=== PATIENT | female | born 1995 | race Caucasian/White ===

== ENCOUNTER 2021-06-19 16:59 | Emergency (ER) | payer MEDICAID ==
[~2021-06-19] VITALS: Ht 154.9 cm; Wt 164.2 kg
[2021-06-19] MEDS ORDERED: ACETAMINOP500 MG/15 PO (17:31)
== END 2021-06-19 20:45 | disposition home or self-care (01) ==
LOC: ED 16:59
DX: M79.652 Pain in left thigh (principal); M79.662 Pain in left lower leg; E66.01 Morbid (severe) obesity due to excess calories; Z90.49 Acquired absence of other specified parts of digestive tract; Z88.1 Allergy status to other antibiotic agents; Z88.8 Allergy status to other drugs, medicaments and biological substances
CPT/HCPCS: 93971; 99283-25

== ENCOUNTER 2021-12-24 16:11 | Emergency (ER) | payer MEDICAID ==
[~2021-12-24] VITALS: Ht 154.9 cm; Wt 164.2 kg
[~2021-12-24 16:11] MED LIST: ACETAMINOP500 MG/15 PO
[2021-12-24] MEDS ORDERED: LISINOPRIL10 MG PO (16:24)
--- NOTE | 2021-12-25 17:27 | EKG ---
[facility] [address] [facility] [place] [address] Signed Normal sinus rhythm Low voltage QRS Borderline ECG No previous ECGs available Confirmed by KRAIG ANDREW MD ([id number]) on 12/25/2021 5:27:32 PM Electronically Signed By: KRAIG ANDREW MD 12/25/21 1727 PATIENT NAME: GUDELIA ABAD Electrocardiogram DATE OF : [birth year] PHYSICIAN: KRAIG ANDREW MD REPORT #: [id number] REPORT IS CONFIDENTIAL AND NOT TO BE RELEASED WITHOUT AUTHORIZATION
== END 2021-12-24 21:10 | disposition home or self-care (01) ==
LOC: ED 16:11
DX: R07.89 Other chest pain (principal); I10 Essential (primary) hypertension; G40.909 Epilepsy, unspecified, not intractable, without status epilepticus; R73.03 Prediabetes; Z88.1 Allergy status to other antibiotic agents; Z88.8 Allergy status to other drugs, medicaments and biological substances; Z79.899 Other long term (current) drug therapy
CPT/HCPCS: 36415; 71045; 71260; 80048; 84484; 84703; 85025; 85379; 93005; 93010; 99285-25; Q9967

== ENCOUNTER 2023-06-13 07:41 | Observation (INO) | payer OTHER ==
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
[~2023-06-13 07:41] MED LIST changes: +ABILIFY MAINTE400 M1 IM; +DICYCLOMINE HCL20 MG PO; +LISINOPRIL10 MG PO; +PROMETHAZINE12.5 M1 PO; +TYLENOL EXTRA500 MG PO
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
== END 2023-06-14 10:00 | disposition home or self-care (01) ==
LOC: FBCO 07:41 → FBC 11:49
PROVIDERS: ADMIT Obstetrics & Gynecology; ATTEND Obstetrics & Gynecology
DX: Z04.1 Encounter for examination and observation following transport accident (principal); O36.8130 Decreased fetal movements, third trimester, not applicable or unspecified; Z3A.31 31 weeks gestation of pregnancy
CPT/HCPCS: 59025; G0378

== ENCOUNTER 2023-07-28 06:35 | Inpatient (IN) | payer OTHER | END 2023-07-30 14:06 | disposition home or self-care (01) | DRG 784 | LOC: FBC 06:35 | PROVIDERS: ADMIT Obstetrics & Gynecology | PROC: 10D00Z1 Extraction of Products of Conception, Low, Open Approach (ICD-10-PCS; principal; 2023-07-28) | PROC: 0UT70ZZ Resection of Bilateral Fallopian Tubes, Open Approach (ICD-10-PCS; 2023-07-28) | DX: O24.429 Gestational diabetes mellitus in childbirth, unspecified control (principal); D62 Acute posthemorrhagic anemia; O72.1 Other immediate postpartum hemorrhage; O90.81 Anemia of the puerperium; O34.211 Maternal care for low transverse scar from previous cesarean delivery; O99.824 Streptococcus B carrier state complicating childbirth; Z3A.37 37 weeks gestation of pregnancy; Z37.0 Single live birth; O77.0 Labor and delivery complicated by meconium in amniotic fluid; O99.214 Obesity complicating childbirth; E66.01 Morbid (severe) obesity due to excess calories; Z79.899 Other long term (current) drug therapy; Z90.49 Acquired absence of other specified parts of digestive tract; Z98.890 Other specified postprocedural states; Z88.1 Allergy status to other antibiotic agents ==

== ENCOUNTER 2023-09-06 22:14 | Emergency (ER) | payer OTHER ==
[~2023-09-06] VITALS: Ht 152.4 cm; Wt 174.0 kg
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
[2023-09-06] MEDS ORDERED: ABILIFY5 MG PO (22:29)
[2023-09-06 23:35] VITALS: BP 147/82
== END 2023-09-06 23:35 | disposition home or self-care (01) ==
LOC: ED 22:14
DX: O90.0 Disruption of cesarean delivery wound (principal); I10 Essential (primary) hypertension; G80.9 Cerebral palsy, unspecified; F41.9 Anxiety disorder, unspecified; F31.9 Bipolar disorder, unspecified; Z88.1 Allergy status to other antibiotic agents; Z79.899 Other long term (current) drug therapy; Z87.891 Personal history of nicotine dependence
CPT/HCPCS: 99282

== ENCOUNTER 2023-11-04 13:05 | Emergency (ER) | payer OTHER ==
[~2023-11-04] VITALS: Ht 152.4 cm; Wt 170.5 kg
[~2023-11-04 13:05] MED LIST changes: +ABILIFY5 MG PO
[2023-11-04] MEDS ORDERED: SUDOGEST30 MG PO (14:02)
[2023-11-04] MEDS ORDERED: BUSPIRONE HCL10 MG PO (14:02)
[2023-11-04] MEDS ORDERED: BUPROPION HCL100 MG PO (14:03)
[2023-11-04 14:38] VITALS: BP 150/101
== END 2023-11-04 14:38 | disposition home or self-care (01) ==
LOC: ED 13:05
DX: B34.9 Viral infection, unspecified (principal); G80.9 Cerebral palsy, unspecified; G40.909 Epilepsy, unspecified, not intractable, without status epilepticus; F41.9 Anxiety disorder, unspecified; F31.9 Bipolar disorder, unspecified; I10 Essential (primary) hypertension; Z87.891 Personal history of nicotine dependence; Z88.1 Allergy status to other antibiotic agents; Z79.899 Other long term (current) drug therapy
CPT/HCPCS: 99283

== ENCOUNTER 2023-11-07 09:06 | Emergency (ER) | payer OTHER ==
[~2023-11-07] VITALS: Ht 152.4 cm; Wt 172.6 kg
[~2023-11-07 09:06] MED LIST changes: +BUPROPION HCL100 MG PO; +BUSPIRONE HCL10 MG PO; +SUDOGEST30 MG PO
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
[2023-11-07] MEDS ORDERED: LIDOCAINE & ANTACID 35 ML BTL PO ONE (10:00)
[2023-11-07] MEDS ORDERED: IBUPROFEN 600 MG TAB PO ONE (10:00)
[2023-11-07] MEDS ORDERED: ACETAMINOPHEN 500 MG TAB PO ONE (10:00)
[2023-11-07] MEDS ORDERED: dexAMETHasone 4 MG TAB PO ONE (10:00)
[2023-11-07 11:16] VITALS: BP 142/89
== END 2023-11-07 11:16 | disposition home or self-care (01) ==
LOC: ED 09:06
DX: J02.9 Acute pharyngitis, unspecified (principal); G80.9 Cerebral palsy, unspecified; G40.909 Epilepsy, unspecified, not intractable, without status epilepticus; F41.9 Anxiety disorder, unspecified; F31.9 Bipolar disorder, unspecified; I10 Essential (primary) hypertension; Z87.891 Personal history of nicotine dependence; Z79.899 Other long term (current) drug therapy
CPT/HCPCS: 99283; A9270; J8540

== ENCOUNTER 2024-05-10 05:45 | Day surgery (SDC) | payer OTHER ==
[2024-05-04 14:34] VITALS: BP 126/80
[~2024-05-10] VITALS: Ht 154.9 cm; Wt 178.2 kg
[~2024-05-10 05:45] MED LIST changes: +LACTATED RINGER'S 1,000 ML IV SCH; +METHYLPREDNISOLO4 M1 PO; +PREDNISONE20 MG PO; +TRULICITY0.75 MG/0. SQ; +VENTOLIN HFA18 GM INH
[2024-05-10 06:02] VITALS: BP 119/64
[2024-05-10] MEDS ORDERED: IBLOOD GLUCOSE TEST STRIP 1 EA TEST VI PRN ×2 (07:00→08:00)
[2024-05-10] MEDS ORDERED: HEParin SOD (PORCINE) 5,000 UNIT/0.5 ML SYR SUB-Q SCH (07:00)
[2024-05-10] MEDS ORDERED: LIDOCAINE HCL 1% 5 ML SDV INJ ONE (07:00)
[2024-05-10] MEDS ORDERED: ACETAMINOPHEN 1,000 MG/100 ML VIAL ONE (07:21)
[2024-05-10] MEDS ORDERED: LIDOCAINE HCL 2% 5 ML SDV ONE (07:21)
[2024-05-10] MEDS ORDERED: ondansetron HCL 4 MG/2 ML VIAL ONE (07:21)
[2024-05-10] MEDS ORDERED: DEXAMETHASONE SOD PHOS 4 MG/ML VIAL ONE (07:21)
[2024-05-10] MEDS ORDERED: fentaNYL citrate 100 MCG/2 ML VIAL ONE (07:21)
[2024-05-10] MEDS ORDERED: propofoL 200 MG/20 ML VIAL ONE (07:21)
[2024-05-10] MEDS ORDERED: KETOROLAC TROMETHAMINE 30 MG/ML VIAL ONE (07:35)
[2024-05-10] MEDS ORDERED: ondansetron HCL 4 MG/2 ML VIAL IV PRN ×2 (08:00→08:30)
[2024-05-10] MEDS ORDERED: fentaNYL citrate 50 MCG/ML SDV IV PRN (08:00)
[2024-05-10] MEDS ORDERED: NALOXONE HCL 0.4 MG SYR IV PRN ×2 (08:00→08:30)
[2024-05-10 08:25] VITALS: BP 110/54
--- NOTE | 2024-05-10 08:27 | NUR ---
05/10/24 0827 Piedad Muhammad 0805 PT ARRIVED IN PACU WIDE AWAKE WITH NO C/O'S. 0815 GLASSES RETURNED TO PT AND SIPPING ON WATER. 0820 TO DS. REPORT GIVEN TO RN. MOM AT BEDSIDE.
[2024-05-10] MEDS ORDERED: METOCLOPRAMIDE HCL 10 MG/2 ML SDV IV PRN (08:30)
[2024-05-10] MEDS ORDERED: FAMOTIDINE 20 MG TAB PO PRN (08:30)
[2024-05-10] MEDS ORDERED: SIMETHICONE 125 MG TABLET CHEWABLE PO PRN (08:30)
[2024-05-10] MEDS ORDERED: MORPHINE SULFATE 10 MG/ML VIAL IV PRN (08:30)
[2024-05-10] MEDS ORDERED: OXYCODONE/APAP 5/325 TAB PO PRN (08:30)
--- NOTE | 2024-05-10 08:39 | NUR ---
0830: PATIENT BACK IN DAY SURGERY ROOM FROM PACU. RATES PAIN 5/10 IN LOWER ABDOMEN. DENIES NEED FOR PAIN MEDICATION AT THIS TIME. SMALL AMOUNT OF BLOODY DRAINAGE FROM VAGINA. VS CHECKED. IV SITE WNL. MOM AT BEDSIDE. CALL LIGHT WITHIN REACH.
--- NOTE | 2024-05-10 09:01 | NUR ---
PATIENT MEDICATED FOR 7/10 ABDOMINAL PAIN WITH 1 TAB OF PERCOCET. PATIENT TOOK TABLET CRUSHED IN APPLESAUCE. TOLERATING WATER AND JELLO. MOTHER AT BEDSIDE. CALL LIGHT WITHIN REACH.
[2024-05-10 09:20] VITALS: BP 119/54
--- NOTE | 2024-05-10 09:46 | OR ---
[facility] [address] [place], [place] [address] Signed DATE OF OPERATION: 05/10/2024 SURGEON: Josiah Yuen DO PREOPERATIVE DIAGNOSES: 1. Abnormal uterine bleeding. 2. Morbid obesity with BMI greater than 75. POSTOPERATIVE DIAGNOSES: 1. Abnormal uterine bleeding. 2. Morbid obesity with BMI greater than 75. PROCEDURES PERFORMED: Hysteroscopy, dilation and curettage. CHILD CARE CENTRE DIRECTOR: General. ESTIMATED BLOOD LOSS: 5 mL. FLUID DEFICIT: 110 mL. SPECIMEN: Endometrial curettings. FINDINGS: Normal external genitalia with normal clitoris, urethral meatus, bilateral Fritch's, and Bartholin's glands. Normal vagina and cervix. On hysteroscopy, normal cervical os and canal. Normal endometrium with no polyps or fibroids and normal bilateral tubal ostia. COMPLICATIONS: None. INDICATIONS: Ms. Abad is a very pleasant 29-year-old female, who has developed increasingly abnormal and heavy bleeding since tubal ligation with delivery of her last baby. Medical history is complicated by morbid obesity with a BMI greater than 75. An ultrasound was attempted to be performed to evaluate for abnormal bleeding, but was suboptimal given Electronically Signed By: JOSIAH YUEN DO (JD) 05/10/24 0946 PATIENT NAME: GUDELIA ABAD OPERATIVE REPORT DATE OF : [birth year] REPORT #: [id number] PHYSICIAN: JOSIAH YUEN DO (JD) PCP: BAHMAN LONGORIA MD REPORT IS CONFIDENTIAL AND NOT TO BE RELEASED WITHOUT AUTHORIZATION [facility] [address] [place], [place] [address] Signed body habitus. Recommended hysteroscopy, D and C for further evaluation. Risks, benefits, and alternatives were discussed in detail with the patient. The patient understands and wished to proceed with the procedure and we will perform this in the OR given the patient's comorbidities. DESCRIPTION OF PROCEDURE: The patient was taken the OR where a time-out was performed to confirm correct patient and correct procedure. General anesthesia was adequately established. The patient was prepped and draped in the dorsal lithotomy position with her feet in Yellofin stirrups. Bilateral foot pumps were applied due to calf size exceeding ICPs capacity and were on and running and no preoperative antibiotics were indicated. Heparin 5000 units was administered. The bladder was drained. A weighted speculum was placed in the vagina and the anterior lip of the cervix was grasped with an Allis clamp. The cervix was gently dilated using Hegar dilators to a #7. An operative hysteroscope was then placed in the cervical os and advanced under direct visualization of the uterine cavity. Normal cervix and uterine cavity appreciated with no structural lesions such as polyps or fibroids. The endometrium appears not overly thickened. Normal tubal ostia bilaterally were appreciated. A MyoSure Lite device was then selected, placed through the operative port of the hysteroscope and circumferential curettage was performed obtaining packaging sales representative sampling of the endometrium. This was sent to pathology for further evaluation. The hysteroscope was removed and fluid deficit was noted to be 110 mL. Bleeding was scant. Allis clamp was removed and the patient was taken to PACU in good and stable condition. Sponge, needle, and instrument count was correct x2 at the end of the procedure. Josiah Yuen DO JDW/MODL /[id number] Copies: ~ Electronically Signed By: JOSIAH YUEN DO (JD) 05/10/24 0946 PATIENT NAME: GUDELIA ABAD OPERATIVE REPORT DATE OF : [birth year] REPORT #: [id number] PHYSICIAN: JOSIAH YUEN DO (JD) PCP: BAHMAN LONGORIA MD REPORT IS CONFIDENTIAL AND NOT TO BE RELEASED WITHOUT AUTHORIZATION
--- NOTE | 2024-05-10 10:32 | NUR ---
0920: VS CHECKED. PATIENT STATES PAIN STARTING TO IMPROVE. DISCHARGE INSTRUCTIONS GIVEN TO PATIENT AND MOTHER. 0930: IV DC'D WNL. TIP INTACT. DRESSING APPLIED. PATIENT ASSISTED OOB AND TO BATHROOM. SMALL AMOUNT OF BLEEDING FROM VAGINA. PATIENT ABLE TO VOID APPROXIMATELY 250 ML. PATIENT DRESSED INDEPENDENTLY IN BATHROOM. 0940: PATIENT DISCHARGED TO HOME VIA WHEELCHAIR WITH MOTHER.
--- NOTE | 2024-05-17 18:01 | PATH ---
[facility] [address] [place], [place] [address] Signed SPECIMEN(S): A ENDOMETRIAL CURETTINGS SPECIMEN SOURCE: A. ENDOMETRIAL CURETTINGS CLINICAL HISTORY: AUB; dysmenorrhea. FINAL PATHOLOGIC DIAGNOSIS: Endometrium, curettings: - Secretory phase endometrium, postovulatory day 6 (menstrual cycle day 20). COMMENT: The specimen consists of secretory phase endometrium that has morphologic features consistent with postovulatory day 6 (menstrual cycle day 20). There is moderate stromal edema and secretion without subnuclear vacuolar change or spiral arteriolar prominence. There is no evidence of hyperplasia or carcinoma. K MICROSCOPIC EXAMINATION: Histologic sections of all submitted blocks are examined by light microscopy. These findings, together with the gross examination, support the pathologic diagnosis. GROSS DESCRIPTION: The specimen, labeled and designated "Jovan, E, " and designated on the requisition "[facility]," is received in formalin and consists of 2.7 x 2.0 x 0.4 cm aggregate of pink-red soft tissue. The specimen is entirely submitted in (A1). FB (under the direct supervision of a pathologist) The Gross Description was prepared using a voice recognition system. The report was reviewed for accuracy; however, sound-alike word errors, addition and/or deletions may occur. If there is any question about this report, please contact Client Services. ADDITIONAL NOTES: Immunohistochemical and/or in situ hybridization studies if performed in this case included appropriate positive controls that reacted as expected. This test was developed and its performance characteristics determined by [facility]. It has not been cleared or PATIENT NAME: GUDELIA ABAD PATHOLOGY DATE OF : [birth year] REPORT #: [id number] PHYSICIAN: ANCELMO BEAUCHAMP PCP: BAHMAN LONGORIA MD REPORT IS CONFIDENTIAL AND NOT TO BE RELEASED WITHOUT AUTHORIZATION [facility] [address] [place] [id number] Signed approved by the U.S. Food and Drug Administration. The FDA has determined that such clearance or approval is not necessary. This test is used for clinical purposes. It should not be regarded as investigational or for research. [facility] is certified under the Clinical Laboratory Improvement Amendments of 1988 (CLIA) as qualified to perform high complexity clinical laboratory testing. PERFORMING LABORATORY: Technical component was performed by [facility], [address] [place] [address] (CLIA# [id number]). Professional interpretation was performed by [facility], [address] [place] [address] (CLIA# [id number]). Diagnostician: Percy Ramirez MD Pathologist Electronically Signed 05/17/2024 Copies: ~ PATIENT NAME: GUDELIA ABAD PATHOLOGY DATE OF : [birth year] REPORT #: [id number] PHYSICIAN: ANCELMO PATHOLOGY PCP: BAHMAN LONGORIA MD REPORT IS CONFIDENTIAL AND NOT TO BE RELEASED WITHOUT AUTHORIZATION
== END 2024-05-10 09:40 ==
LOC: DS 05:45 → OPS 05:45 → DS 09:45 → OPS 09:45
PROVIDERS: ATTEND Obstetrics & Gynecology
PROC: 0UDB8ZZ Extraction of Endometrium, Via Natural or Artificial Opening Endoscopic (ICD-10-PCS; principal; 2024-05-10 07:30)
DX: N93.9 Abnormal uterine and vaginal bleeding, unspecified (principal); N94.6 Dysmenorrhea, unspecified; E66.01 Morbid (severe) obesity due to excess calories; Z68.45 Body mass index [BMI] 70 or greater, adult; Z88.1 Allergy status to other antibiotic agents
CPT/HCPCS: 00952; 88305; J0131; J1100; J1644; J1885; J2001; J2405; J2704; J3010; J7121

== ENCOUNTER 2024-05-24 15:39 | Emergency (ER) | payer OTHER ==
[~2024-05-24] VITALS: Ht 154.9 cm; Wt 179.0 kg
[~2024-05-24 15:39] MED LIST changes: -LACTATED RINGER'S 1,000 ML IV SCH
[2024-05-24] MEDS ORDERED: HYDROCODONE/ACETA 7.5/325 TAB PO ONE (18:30)
[2024-05-24] MEDS ORDERED: IBUPROFEN 600 MG TAB PO ONE (18:30)
[2024-05-24] MEDS ORDERED: HYDROCODON-ACE1 EA11 PO (19:42)
[2024-05-24 20:50] VITALS: BP 127/65
== END 2024-05-24 20:50 | disposition home or self-care (01) ==
LOC: ED 15:39
DX: S92.352A Displaced fracture of fifth metatarsal bone, left foot, initial encounter for closed fracture (principal); I10 Essential (primary) hypertension; G80.9 Cerebral palsy, unspecified; X50.1XXA Overexertion from prolonged static or awkward postures, initial encounter; Z87.891 Personal history of nicotine dependence; Z88.1 Allergy status to other antibiotic agents; Z79.899 Other long term (current) drug therapy
CPT/HCPCS: 29515; 73610; 73630; 99283-25; A9270

== ENCOUNTER 2024-05-27 15:07 | Emergency (ER) | payer OTHER ==
[~2024-05-27] VITALS: Ht 154.9 cm; Wt 182.5 kg
[~2024-05-27 15:07] MED LIST changes: +HYDROCODON-ACE1 EA11 PO
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
[2024-05-27 16:27] VITALS: BP 93/58
== END 2024-05-27 16:27 | disposition home or self-care (01) ==
LOC: ED 15:07
DX: S92.352D Displaced fracture of fifth metatarsal bone, left foot, subsequent encounter for fracture with routine healing (principal); X58.XXXD Exposure to other specified factors, subsequent encounter; G80.9 Cerebral palsy, unspecified; R73.03 Prediabetes; G40.909 Epilepsy, unspecified, not intractable, without status epilepticus; I10 Essential (primary) hypertension; Z87.891 Personal history of nicotine dependence; Z88.1 Allergy status to other antibiotic agents; Z79.85 Long-term (current) use of injectable non-insulin antidiabetic drugs; Z79.899 Other long term (current) drug therapy
CPT/HCPCS: 29515; 99282

== ENCOUNTER 2024-07-02 18:48 | Emergency (ER) | payer OTHER ==
[~2024-07-02] VITALS: Ht 154.9 cm; Wt 182.1 kg
--- OUTSIDE RECORDS SUMMARY | 2024-07-02 18:55 | XMS ---
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 Security Telephone Order Dispatcher Events No recent Security Events currently on file CRITERIA MET - 6 ED Visits in 6 Months - [facility] - 3 Facilities in 90 Days CARE PROVIDERS -, [facility] Dentist: Fisher [employer] [facility] PHONE: [phone] -, [place]- Dentist: Fisher Re[employer] [facility] PHONE: [phone] CLOTILDE ARANA Internal Medicine Current PHONE: [phone] BREANNE HORNE Durable Medical Equipment \T\ Medical Supplies Current PHONE: [phone] ANGEL GUZMÁN Nurse Practitioner: Family Current PHONE: [phone] [facility]/Center: [facility] Health Current \F\ [facility] PHONE: [phone] [facility]: Critical Access Current PHONE: [phone] Jori has no Care Guidelines for this patient. Eugenie VISIT COUNT (12 MO.) [address] [place] [address]. Mary MLulu (Jack Santiago) TOTAL 13 NOTE: Visits indicate total known visits. ED/UCC VISIT TRACKING (12 MO.) 07/02/2024 18:49 JOSE Johnson TYPE: Emergency COMPLAINT: - COLD SYMPTOMS 05/31/2024 16:34 [facility] Jack COOPER (Jack Santiago) TYPE: Emergency DIAGNOSES: - Nondisplaced fracture of fifth metatarsal bone, left foot, initial encounter for closed fracture - foot inj, needs new boot - Foot Pain - lt foot inj, needs new boot 05/28/2024 09:49 [facility] [place] TYPE: Emergency DIAGNOSES: - Displaced fracture of fifth metatarsal bone, left foot, initial encounter for closed fracture - FOOT INJURY 05/27/2024 15:08 [facility] [place] TYPE: Emergency COMPLAINT: - ANKLE PAIN DIAGNOSES: - Allergy status to other antibiotic agents - Cerebral palsy, unspecified - Displaced fracture of fifth metatarsal bone, left foot, subsequent encounter for fracture with routine healing - Epilepsy, unspecified, not intractable, without status epilepticus - Essential (primary) hypertension - Exposure to other specified factors, subsequent encounter - Long-term (current) use of injectable non-insulin antidiabetic drugs - Other termite control technician (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) drug 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 - Personal history of nicotine dependence - Prediabetes 05/24/2024 15:39 [facility] [place] TYPE: Emergency COMPLAINT: - ANKLE PAIN DIAGNOSES: - Allergy status to other antibiotic agents - Cerebral palsy, unspecified - Displaced fracture of fifth metatarsal bone, left foot, initial encounter for closed fracture - Essential (primary) hypertension - Other jail (current) drug therapy - Overexertion from prolonged static or awkward postures, initial encounter - Pain in left ankle and joints of left foot - Personal history of nicotine dependence 01/12/2024 15:17 [facility] [place] TYPE: Emergency COMPLAINT: - SOB,LIGHT HEADED,CHEST DISCOMFORT DIAGNOSES: - Allergy status to other antibiotic agents - Essential (primary) hypertension - Other jail (current) drug therapy - Personal history of [...] hypertension - Other chest pain - Other jail (current) drug therapy - Personal history of nicotine dependence 12/18/2023 10:54 [facility] [place] TYPE: Emergency COMPLAINT: - CHEST PAIN DIAGNOSES: - Allergy status to other antibiotic agents - Anxiety disorder, unspecified - Bipolar disorder, unspecified - Cerebral palsy, unspecified - Cough, unspecified - Epilepsy, unspecified, not intractable, without status epilepticus - Essential (primary) hypertension - Other jail (current) drug therapy - Personal history of nicotine dependence - Unspecified asthma, uncomplicated 11/07/2023 09:06 [facility] [place] TYPE: Emergency COMPLAINT: - UNABLE TO SWALLOW DIAGNOSES: - Acute pharyngitis, unspecified - Anxiety disorder, unspecified - Bipolar disorder, unspecified - Cerebral palsy, unspecified - Epilepsy, unspecified, not intractable, without status epilepticus - Essential (primary) hypertension - Other termite control technician (current) drug therapy - Personal history of nicotine dependence 11/04/2023 16:25 [facility] [place] TYPE: Emergency DIAGNOSES: - Acute maxillary [...] epilepticus - Essential (primary) hypertension - Other termite control technician (current) drug therapy - Other specified disorders [...] wound - Essential (primary) hypertension - Other jail (current) drug therapy - Personal history of nicotine dependence 08/15/2023 17:54 [facility] [place] TYPE: Emergency DIAGNOSES: - Lobar pneumonia, unspecified organism - CONGESTION INPATIENT VISIT TRACKING (12 MO.) 07/28/2023 06:[address] [facility] [place] TYPE: [facility] COMPLAINT: - REPEAT C/SECTION W/ TUBAL DIAGNOSES: [...] - Other immediate hemorrhage - Other termite control technician (current) drug therapy - Other jail (current) drug therapy - Other specified postprocedural states - Other specified postprocedural states - Single live - Single live - Streptococcus B carrier state complicating childbirth - Streptococcus B carrier state complicating childbirth - Supervision of other high risk pregnancies, third trimester [email or web address]
[2024-07-02] MEDS ORDERED: ONDANSETRON ODT4 MG PO (19:13)
[2024-07-02] MEDS ORDERED: ALBUTEROL/IPRATROPIUM 3 ML NEB INH ONE (19:15)
[2024-07-02] MEDS ORDERED: DEXAMETHASONE SOD PHOS 10 MG/ML VIAL IM ONE (19:15)
[2024-07-02 19:40] LABS: INFLUENZA B NAA NEGATIVE (NEGATIVE); RESPIRATORY SYNCYTIAL VIR NAA NEGATIVE (NEGATIVE)
[2024-07-02] MEDS ORDERED: AMOXICILLIN/CLAVULANATE K 875 MG TAB PO ONE (20:15)
[2024-07-02] MEDS ORDERED: AMOX TR-K CLV1 EAC1 PO (20:15)
[2024-07-02] MEDS ORDERED: ALBUTEROL SULFATE 8 GM HOME.PACK INH ONE (20:15)
[2024-07-02] MEDS ORDERED: INHALER, ASSIST DEVICES 1 EACH SPACER MISC ONE (20:15)
[2024-07-02] MEDS ORDERED: METHYLPREDNISOLO4 M1 PO (20:15)
[2024-07-02 20:40] VITALS: BP 134/60
== END 2024-07-02 20:40 | disposition home or self-care (01) ==
LOC: ED 18:48
PROVIDERS: Emergency Medicine
DX: J40 Bronchitis, not specified as acute or chronic (principal); I10 Essential (primary) hypertension; Z87.891 Personal history of nicotine dependence; Z88.1 Allergy status to other antibiotic agents; Z79.899 Other long term (current) drug therapy; Z11.52 Encounter for screening for COVID-19
CPT/HCPCS: 71045; 87502; 94640; 94664; 96372; 99284-25; J1100; U0002

== ENCOUNTER 2024-08-11 12:51 | Emergency (ER) | payer OTHER ==
[~2024-08-11] VITALS: Ht 154.9 cm; Wt 181.3 kg
[~2024-08-11 12:51] MED LIST changes: +AMOX TR-K CLV1 EAC1 PO; +ONDANSETRON ODT4 MG PO
--- OUTSIDE RECORDS SUMMARY | 2024-08-11 13:19 | XMS ---
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 No recent Security Events currently on file CRITERIA MET - 6 ED Visits in 6 Months - [facility] - 3 Facilities in 90 Days CARE PROVIDERS -, [facility] Dentist: Sheather [facility] PHONE: [phone] -[place]- Dentist: Sheather Replaced By [facility] PHONE: [phone] JESS LAZARO Physician Coat Agent Current PHONE: [phone] CLOTILDE ARANA Internal Medicine Current PHONE: [phone] BREANNE HORNE Durable Medical Equipment \T\ Medical Supplies Current PHONE: [phone] ANGEL GUZMÁN Nurse Practitioner: Family Current PHONE: [phone] [facility]: Rural Health Current \F\ [facility] PHONE: [phone] [facility]: Critical Access Current PHONE: [phone] Jori has no Care Guidelines for this patient. E.D. VISIT COUNT (12 MO.) 10 JOSE Barros [facility] 1 [facility] Song (Jack Santiago) TOTAL 14 NOTE: Visits indicate total known visits. ED/UCC VISIT TRACKING (12 MO.) 08/11/2024 12:51 [facility] [place] TYPE: Emergency COMPLAINT: - CHEST PAIN 07/02/2024 18:49 [facility] [place] TYPE: Emergency COMPLAINT: - COLD SYMPTOMS DIAGNOSES: - Allergy status to other antibiotic agents - Bronchitis, not specified as acute or chronic - Cough, unspecified - Encounter for screening for COVID-19 - Essential (primary) hypertension - Nasal congestion - Other fci (current) drug therapy - Personal history of nicotine dependence - Wheezing 05/31/2024 [facility] DIAGNOSES: - Nondisplaced fracture of fifth metatarsal bone, left foot, initial encounter for closed fracture - foot inj, needs new boot - Foot Pain - lt foot inj, needs new boot 05/28/2024 09:49 [facility] [place] TYPE: Emergency DIAGNOSES: - Displaced fracture [...] of injectable non-insulin antidiabetic drugs - Other fci (current) drug therapy - Personal history of nicotine dependence - Prediabetes 05/24/2024 15:39 [facility] [place] TYPE: Emergency COMPLAINT: - ANKLE PAIN DIAGNOSES: - Allergy status to other antibiotic agents - Cerebral palsy, unspecified - Displaced fracture of fifth metatarsal bone, left foot, initial encounter for closed fracture - Essential (primary) hypertension - Other rn long term care (current) drug therapy - Overexertion from prolonged static or awkward postures, initial encounter - Pain in left ankle and joints of left foot - Personal history of nicotine dependence 01/12/2024 15:[address] [facility] [place] TYPE: Emergency COMPLAINT: - SOB,LIGHT HEADED,CHEST DISCOMFORT DIAGNOSES: - Allergy status to other antibiotic agents - Essential (primary) hypertension - Other rn long term care (current) drug therapy - Personal history of [...] hypertension - Other chest pain - Other fci (current) drug therapy - Personal history of nicotine dependence 12/18/2023 10:54 [facility] [place] TYPE: Emergency COMPLAINT: - CHEST PAIN DIAGNOSES: - Allergy status to other antibiotic agents - Anxiety disorder, unspecified - Bipolar disorder, unspecified - Cerebral palsy, unspecified - Cough, unspecified - Epilepsy, unspecified, not intractable, without status epilepticus - Essential (primary) hypertension - Other rn long term care (current) drug therapy - Personal history of nicotine dependence - Unspecified asthma, uncomplicated 11/07/2023 09:06 [facility] [place] TYPE: Emergency COMPLAINT: - UNABLE TO SWALLOW DIAGNOSES: - Acute pharyngitis, unspecified - Anxiety disorder, unspecified - Bipolar disorder, unspecified - Cerebral palsy, unspecified - Epilepsy, unspecified, not intractable, without status epilepticus - Essential (primary) hypertension - Other fci (current) drug therapy - Personal history of nicotine dependence 11/04/2023 16:25 [facility] [place] TYPE: Emergency DIAGNOSES: - [...] epilepticus - Essential (primary) hypertension - Other rn long term care (current) drug therapy - Other specified disorders [...] wound - Essential (primary) hypertension - Other rn long term care (current) drug therapy - Personal history of nicotine dependence 08/15/2023 17:54 [facility] [place] TYPE: Emergency DIAGNOSES: - Lobar pneumonia, unspecified organism - CONGESTION INPATIENT VISIT TRACKING (12 MO.) No inpatient visits to display in this time frame [email or web address]
[2024-08-11 14:32] VITALS: BP 00/00
--- NOTE | 2024-08-12 15:57 | EKG ---
[facility] [address] [place], [place] [address] Signed Normal sinus rhythm Normal ECG When compared with ECG of 04-MAY-2024 14:43, No significant change was found Confirmed by Marylin Dubois MD ([id number]) on 08/12/2024 3:56:45 PM Electronically Signed By: MARYLIN DUBOIS MD 08/12/24 1557 PATIENT NAME: GUDELIA ABAD Electrocardiogram DATE OF : 89 PHYSICIAN: MARYLIN DUBOIS MD REPORT #: [id number] REPORT IS CONFIDENTIAL AND NOT TO BE RELEASED WITHOUT AUTHORIZATION
== END 2024-08-11 14:21 | disposition left against medical advice (07) ==
LOC: ED 12:51
DX: R07.89 Other chest pain (principal); R05.9 Cough, unspecified; R51.9 Headache, unspecified; R42 Dizziness and giddiness; Z53.21 Procedure and treatment not carried out due to patient leaving prior to being seen by health care provider
CPT/HCPCS: 93005; 93010

== ENCOUNTER 2024-09-02 21:34 | Emergency (ER) | payer OTHER ==
[~2024-09-02] VITALS: Ht 154.9 cm; Wt 185.3 kg
--- OUTSIDE RECORDS SUMMARY | 2024-09-02 21:39 | XMS ---
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 FAMILY PHONE: [phone] CLOTILDE ARANA Internal Medicine Current PHONE: [phone] BREANNE HORNE Durable Medical Equipment \T\ Medical Supplies Current PHONE: [phone] ANGEL GUZMÁN Nurse Practitioner: Family Current PHONE: [phone] [facility]: Critical Access Current PHONE: [phone] Jori has no Care Guidelines for this patient. EJorge A VISIT COUNT (12 MO.) [address] [facility] 1 [facility] Julieta Zuleta (Jack Santiago) TOTAL 15 NOTE: Visits indicate total known visits. ED/UCC VISIT TRACKING (12 MO.) 09/02/2024 21:35 [facility] [place] TYPE: Emergency COMPLAINT: - JAW PAIN LEFT SIDE 08/11/2024 15:36 [facility] [place] TYPE: Emergency DIAGNOSES: - Acute upper respiratory infection, unspecified - Chest pain, unspecified - CHEST PAIN SOB 08/11/2024 12:51 [facility] [place] TYPE: Emergency COMPLAINT: - CHEST PAIN DIAGNOSES: - Chest pain, unspecified - Cough, unspecified - Dizziness and giddiness - Headache, unspecified - Other chest pain - Procedure and treatment not carried out due to patient leaving prior to being seen by health care provider 07/02/2024 18:49 [facility] [place] TYPE: Emergency COMPLAINT: - COLD SYMPTOMS DIAGNOSES: - Allergy status to other antibiotic agents - Bronchitis, not specified as acute or chronic - Cough, unspecified - Encounter for screening for COVID-19 - Essential (primary) hypertension - Nasal congestion - Other senior living (current) drug therapy - Personal history of nicotine dependence - Wheezing 05/31/2024 16:34 [facility] Song Santiago) TYPE: Emergency DIAGNOSES: - Nondisplaced fracture of fifth metatarsal bone, left foot, initial encounter for closed fracture - foot inj, needs new boot - Foot Pain - lt foot inj, needs new boot 05/28/2024 09:49 [facility] [place] TYPE: Emergency DIAGNOSES: - Displaced [...] of injectable non-insulin antidiabetic drugs - Other senior living (current) drug therapy - Personal history of nicotine dependence - Prediabetes 05/24/2024 15:39 [facility] [place] TYPE: Emergency COMPLAINT: - ANKLE PAIN DIAGNOSES: - Allergy status to other antibiotic agents - Cerebral palsy, unspecified - Displaced fracture of fifth metatarsal bone, left foot, initial encounter for closed fracture - Essential (primary) hypertension - 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 - Overexertion from prolonged static or awkward postures, initial encounter - Pain in left ankle and joints of left foot - Personal history of nicotine dependence 01/12/2024 15:17 [facility] [place] TYPE: Emergency COMPLAINT: - SOB,LIGHT HEADED,CHEST DISCOMFORT DIAGNOSES: - Allergy status to other antibiotic agents - Essential (primary) hypertension - Other senior living (current) drug therapy - Personal history of [...] hypertension - Other chest pain - 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 - Personal history of nicotine dependence 12/18/2023 10:54 [facility] [place] TYPE: Emergency COMPLAINT: - CHEST PAIN DIAGNOSES: - Allergy status to other antibiotic agents - Anxiety disorder, unspecified - Bipolar disorder, unspecified - Cerebral palsy, unspecified - Cough, unspecified - Epilepsy, unspecified, not intractable, without status epilepticus - Essential (primary) hypertension - 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 - Personal history of nicotine dependence - Unspecified asthma, uncomplicated 11/07/2023 09:06 [facility] [place] TYPE: Emergency COMPLAINT: - UNABLE TO SWALLOW DIAGNOSES: - Acute pharyngitis, unspecified - Anxiety disorder, unspecified - Bipolar disorder, unspecified - Cerebral palsy, unspecified - Epilepsy, unspecified, not intractable, without status epilepticus - Essential (primary) hypertension - Other senior living (current) drug therapy - Personal history of nicotine dependence 11/04/2023 16:25 [facility] [place] TYPE: Emergency DIAGNOSES: - Acute [...] epilepticus - Essential (primary) hypertension - Other senior living (current) drug therapy - Other specified disorders of nose and nasal sinuses - Personal history of nicotine dependence - Viral infection, unspecified 09/06/2023 22:14 [facility] [place] TYPE: Emergency COMPLAINT: - POST OP ISSUE DIAGNOSES: - Allergy status to other antibiotic agents - Anxiety disorder, unspecified - Bipolar disorder, unspecified - Cerebral palsy, unspecified - Disruption of delivery wound - Essential (primary) hypertension - 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
[2024-09-02] MEDS ORDERED: DOXYCYCLINE MO100 MG PO (21:47)
[2024-09-02] MEDS ORDERED: ALBUTEROL2.5 MG/3 M INH (21:47)
[2024-09-02] MEDS ORDERED: CELEBREX200 MG PO (21:49)
[2024-09-02] MEDS ORDERED: KETOROLAC TROMETHAMINE 60 MG/2 ML VIAL IM ONE (22:00)
[2024-09-02] MEDS ORDERED: NEOMYCIN/POLYMYXIN/HYDROCORT 10 ML HOME.PACK OTIC ONE (22:00)
[2024-09-02 22:17] VITALS: BP 137/65
== END 2024-09-02 22:18 | disposition home or self-care (01) ==
LOC: ED 21:34
DX: H60.92 Unspecified otitis externa, left ear (principal); M26.602 Left temporomandibular joint disorder, unspecified; G80.9 Cerebral palsy, unspecified; R73.03 Prediabetes; G40.909 Epilepsy, unspecified, not intractable, without status epilepticus; I10 Essential (primary) hypertension; Z87.891 Personal history of nicotine dependence; Z88.1 Allergy status to other antibiotic agents; Z79.85 Long-term (current) use of injectable non-insulin antidiabetic drugs; Z79.899 Other long term (current) drug therapy
CPT/HCPCS: 96372; 99283; J1885

== ENCOUNTER 2024-09-11 12:35 | Emergency (ER) | payer OTHER ==
[~2024-09-11] VITALS: Ht 154.9 cm; Wt 181.2 kg
--- NOTE | ~2024-09-11 | EKG ---
[facility] [address] [place], [place] [address] Draft EKG completed, results pending confirmation PATIENT NAME: GUDELIA ABAD JOMAR Electrocardiogram DATE OF : 89 PHYSICIAN: PRELIMINARY REPORT #: [id number] REPORT IS CONFIDENTIAL AND NOT TO BE RELEASED WITHOUT AUTHORIZATION
[~2024-09-11 12:35] MED LIST changes: +ALBUTEROL2.5 MG/3 M INH; +CELEBREX200 MG PO; +DOXYCYCLINE MO100 MG PO
--- OUTSIDE RECORDS SUMMARY | 2024-09-11 12:42 | XMS ---
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 No recent Security Events currently on file CRITERIA MET - 6 ED Visits in 6 Months - Group Notification - [facility] - 2 Visits in 30 Days CARE PROVIDERS -, [facility] Dentist: Director Credit Risk Current [place] PHONE: [phone] -[place]- Dentist: Director Credit Risk [facility] PHONE: [phone] JESS LAZARO Spa Concierge Current PHONE: [phone] [facility]: [facility] FAMILY PHONE: [phone] CLOTILDE ARANA Internal Medicine Current PHONE: [phone] BREANNE HORNE Durable Medical Equipment \T\ Medical Supplies Current PHONE: [phone] ANGEL GUZMÁN Nurse Practitioner: Family Current PHONE: [phone] [facility]: Critical Access Current PHONE: [phone] Jori has no Care Guidelines for this patient. EJorge A VISIT COUNT (12 MO.) 11 JOSE Barros [facility] 1 [facility] Julieta Zuleta (Jack Santiago) TOTAL 15 NOTE: Visits indicate total known visits. ED/UCC VISIT TRACKING (12 MO.) 09/11/2024 12:36 JOSE Padilla [place] TYPE: Emergency COMPLAINT: - CHEST PAIN 09/02/2024 21:35 JOSE Padilla [place] TYPE: Emergency COMPLAINT: - JAW PAIN LEFT SIDE DIAGNOSES: - Allergy status to other antibiotic agents - Cerebral palsy, unspecified - Epilepsy, unspecified, not intractable, without status epilepticus - Essential (primary) hypertension - Jaw pain - Left temporomandibular joint disorder, unspecified - Long-term (current) use of injectable non-insulin antidiabetic drugs - Other senior living (current) drug therapy - Personal history of nicotine dependence - Prediabetes - Unspecified otitis externa, left ear 08/11/2024 15:36 [facility] [place] TYPE: Emergency DIAGNOSES: - Acute upper [...] (primary) hypertension - Nasal congestion - Other exterminator helper termite (current) drug therapy - Personal history of nicotine dependence - Wheezing [facility]24 [facility] DIAGNOSES: - Nondisplaced fracture of fifth metatarsal bone, left foot, initial encounter for closed fracture - foot inj, needs new boot - Foot Pain - lt foot inj, needs new boot 05/28/2024 09:49 [facility] [place] TYPE: Emergency DIAGNOSES: - [...] of injectable non-insulin antidiabetic drugs - Other exterminator helper termite (current) drug therapy - Personal history of nicotine dependence - Prediabetes 05/24/2024 15:39 JOSE Padilla [place] TYPE: Emergency COMPLAINT: - ANKLE PAIN DIAGNOSES: - Allergy status to other antibiotic agents - Cerebral palsy, unspecified - Displaced fracture of fifth metatarsal bone, left foot, initial encounter for closed fracture - Essential (primary) hypertension - Other senior living (current) drug therapy - Overexertion from prolonged [...] hypertension - Other chest pain - Other exterminator helper termite (current) drug therapy - Personal history of nicotine dependence 12/18/2023 10:54 JOSE Padilla [place] TYPE: Emergency COMPLAINT: - CHEST PAIN DIAGNOSES: - Allergy status to other antibiotic agents - Anxiety disorder, unspecified - Bipolar disorder, unspecified - Cerebral palsy, unspecified - Cough, unspecified - Epilepsy, unspecified, not intractable, without status epilepticus - Essential (primary) hypertension - Other exterminator helper termite (current) drug therapy - Personal history of nicotine dependence - Unspecified asthma, uncomplicated 11/07/2023 09:06 JOSE Padilla [place] TYPE: Emergency COMPLAINT: - UNABLE TO SWALLOW DIAGNOSES: - Acute pharyngitis, unspecified - Anxiety disorder, unspecified - Bipolar disorder, unspecified - Cerebral palsy, unspecified - Epilepsy, unspecified, not intractable, without status epilepticus - Essential (primary) hypertension - Other exterminator helper termite (current) drug therapy - Personal history of nicotine dependence 11/04/2023 16:25 [facility] [place] TYPE: Emergency DIAGNOSES: - [...] of nicotine dependence - Viral infection, unspecified INPATIENT VISIT TRACKING (12 MO.) No inpatient visits to display in this time frame [id number]
[2024-09-11] MEDS ORDERED: methylPREDNISolone SOD SUCC 125 MG/2 ML VIAL IV ONE (12:45)
[2024-09-11] MEDS ORDERED: IPRATROPIUM BROMIDE 2.5 ML VIAL INH ONE (12:45)
[2024-09-11] MEDS ORDERED: ALBUTEROL SULFATE 0.5% 2.5 MG/0.5 ML VIAL INH ONE (12:45)
[2024-09-11 13:33] LABS: EOSINOPHILS 6.5 % (0-6); HEMOGLOBIN 12.8 g/dL (12.0-18.0); LYMPHOCYTES 21.3 % (24-44); MCH 25.9 (27-36); MCHC 32.8 g/dl (30-36); MCV 78.8 fl (81-99); MONOCYTES 4.7 % (0-12); NEUTROPHILS 66.5 % (39-80); PLATELET COUNT 427 K/uL (140-440); RBC 4.95 M/ul (4.3-5.7); RDW 15.7 (10.5-15.0)
[2024-09-11 13:47] LABS: ALBUMIN 3.3 g/dL (3.4-5.0); ALBUMIN/GLOBULIN RATIO 0.75 (1.1-2.4); ANION GAP 14.1 (7-21); BILIRUBIN, TOTAL 1.6 ng/dL (0.2-1.0); BUN/CREATININE RATIO 11.25 (6.0-28.6); CALCIUM 8.9 mg/dL (8.5-10.1); CREATININE, SERUM 0.8 mg/dL (0.55-1.02); POTASSIUM 4.1 mmol/L (3.5-5.1); PROTEIN, TOTAL 7.7 g/dL (6.4-8.2)
[2024-09-11 14:08] LABS: INFLUENZA B NAA NEGATIVE (NEGATIVE); RESPIRATORY SYNCYTIAL VIR NAA NEGATIVE (NEGATIVE)
[2024-09-11] MEDS ORDERED: PREDNISONE20 MG PO (16:08)
[2024-09-11 16:20] VITALS: BP 123/73
== END 2024-09-11 16:20 | disposition home or self-care (01) ==
LOC: ED 12:35
PROVIDERS: Emergency Medicine
DX: J45.901 Unspecified asthma with (acute) exacerbation (principal); I10 Essential (primary) hypertension; R73.03 Prediabetes; G40.909 Epilepsy, unspecified, not intractable, without status epilepticus; Z87.891 Personal history of nicotine dependence; Z88.1 Allergy status to other antibiotic agents; Z79.899 Other long term (current) drug therapy
CPT/HCPCS: 36415; 71045; 80053; 85025; 87502; 93005; 93010; 94644; 96374; 99285-25; J2919; U0002

== ENCOUNTER 2024-09-17 18:43 | Emergency (ER) | payer OTHER ==
[~2024-09-17] VITALS: Ht 154.9 cm; Wt 183.3 kg
--- OUTSIDE RECORDS SUMMARY | 2024-09-17 18:50 | XMS ---
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 Security Transverse Abdominal Muscle Nurse Events No recent Security Events currently on file CRITERIA MET - 6 ED Visits in 6 Months - Group Notification - [facility] - 2 Visits in 30 Days CARE PROVIDERS -, [facility] Dentist: Laundry Housekeeper Current [place] PHONE: [phone] -[place]- Dentist: Laundry Housekeeper [facility] PHONE: [phone] JESS LAZARO Master Baker Current PHONE: [phone] [facility]: [facility] Health [facility] FAMILY PHONE: [phone] CLOTILDE ARANA Internal Medicine Current PHONE: [phone] BREANNE HORNE Durable Medical Equipment \T\ Medical Supplies Current PHONE: [phone] ANGEL GUZMÁN Nurse Practitioner: Family Current PHONE: [phone] [facility]: Critical Access Current PHONE: [phone] Jori has no Care Guidelines for this patient. EJorge A VISIT COUNT (12 MO.) JOSE Barros [facility] 1 [facility] Julieta Zuleta (Jack Santiago) TOTAL 16 NOTE: Visits indicate total known visits. ED/UCC VISIT TRACKING (12 MO.) 09/17/2024 18:44 JOSE Padilla [place] TYPE: Emergency COMPLAINT: - FOOT INJURY 09/11/2024 12:36 [facility] [place] [facility]: Emergency COMPLAINT: - CHEST PAIN DIAGNOSES: - Allergy status to other antibiotic agents - Epilepsy, unspecified, not intractable, without status epilepticus - Essential (primary) hypertension - Other snf (current) drug therapy - Personal history of nicotine dependence - Prediabetes - Shortness of breath - Unspecified asthma with (acute) exacerbation 09/02/2024 21:[facility] [place] [facility] COMPLAINT: - JAW PAIN LEFT SIDE DIAGNOSES: - Allergy status to other antibiotic agents - Cerebral palsy, unspecified - Epilepsy, unspecified, not intractable, without status epilepticus - Essential (primary) hypertension - Jaw pain - Left temporomandibular joint disorder, unspecified - Long-term (current) use of injectable non-insulin antidiabetic drugs - Other snf (current) drug therapy - Personal history of nicotine dependence - Prediabetes - Unspecified otitis externa, left ear 08/11/2024 15:36 [facility] [place] TYPE: Emergency DIAGNOSES: - Acute upper respiratory infection, unspecified - Chest pain, unspecified - CHEST PAIN SOB 08/11/2024 12:[address] [facility] [address] [facility] [place] TYPE: Emergency COMPLAINT: - CHEST PAIN DIAGNOSES: - Chest pain, unspecified - Cough, unspecified - Dizziness and giddiness - Headache, unspecified - Other chest pain - Procedure and treatment not carried out due to patient leaving prior to being seen by health care provider 07/02/2024 18:49 [facility] [place] [facility]ene [place] TYPE: Emergency COMPLAINT: - COLD SYMPTOMS DIAGNOSES: - Allergy status to other antibiotic agents - Bronchitis, not specified as acute or chronic - Cough, unspecified - Encounter for screening for COVID-19 - Essential (primary) hypertension - Nasal congestion - Other insurance investigator (current) drug therapy - Personal history of nicotine dependence - Wheezing 05/31/2024 16:[facility] DIAGNOSES: - Nondisplaced fracture of fifth metatarsal bone, left foot, initial encounter for closed fracture - foot inj, needs new boot - Foot Pain - lt foot inj, needs new boot 05/28/2024 09:49 [facility] [place] TYPE: Emergency DIAGNOSES: - Displaced [...] of injectable non-insulin antidiabetic drugs - Other snf (current) drug therapy - Personal history of nicotine dependence - Prediabetes 05/24/2024 15:39 JOSE Padilla [place] TYPE: Emergency COMPLAINT: - ANKLE PAIN DIAGNOSES: - Allergy status to other antibiotic agents - Cerebral palsy, unspecified - Displaced fracture of fifth metatarsal bone, left foot, initial encounter for closed fracture - Essential (primary) hypertension - Other snf (current) drug therapy - Overexertion from prolonged static or awkward postures, initial encounter - Pain in left ankle and joints of left foot - Personal history of nicotine dependence 01/12/2024 15:17 JOSE Padilla [place] TYPE: Emergency COMPLAINT: - SOB,LIGHT HEADED,CHEST DISCOMFORT DIAGNOSES: - Allergy status to other antibiotic agents - Essential (primary) hypertension - Other insurance investigator (current) drug therapy - Personal history of [...] hypertension - Other chest pain - Other insurance investigator (current) drug therapy - Personal history of nicotine dependence 12/18/2023 10:54 JOSE Padilla [place] TYPE: Emergency COMPLAINT: - CHEST PAIN DIAGNOSES: - Allergy status to other antibiotic agents - Anxiety disorder, unspecified - Bipolar disorder, unspecified - Cerebral palsy, unspecified - Cough, unspecified - Epilepsy, unspecified, not intractable, without status epilepticus - Essential (primary) hypertension - Other insurance investigator (current) drug therapy - Personal history of nicotine dependence - Unspecified asthma, uncomplicated 11/07/2023 09:06 JOSE Padilla [place] TYPE: Emergency COMPLAINT: - UNABLE TO SWALLOW DIAGNOSES: - Acute pharyngitis, unspecified - Anxiety disorder, unspecified - Bipolar disorder, unspecified - Cerebral palsy, unspecified - Epilepsy, unspecified, not intractable, without status epilepticus - Essential (primary) hypertension - Other snf (current) drug therapy - Personal history of nicotine dependence 11/04/2023 16:25 [facility] [place] TYPE: Emergency DIAGNOSES: - Acute [...] epilepticus - Essential (primary) hypertension - Other insurance investigator (current) drug therapy - Other specified disorders of nose and nasal sinuses - Personal history of nicotine dependence - Viral infection, unspecified INPATIENT VISIT TRACKING (12 MO.) No inpatient visits to display in this time frame [id number]
[2024-09-17] MEDS ORDERED: DOXYCYCLINE MO100 MG PO (18:57)
[2024-09-17] MEDS ORDERED: KETOROLAC TROME10 MG PO (18:57)
[2024-09-17 20:18] VITALS: BP 123/66
== END 2024-09-17 20:18 | disposition home or self-care (01) ==
LOC: ED 18:43
DX: S90.32XA Contusion of left foot, initial encounter (principal); W01.0XXA Fall on same level from slipping, tripping and stumbling without subsequent striking against object, initial encounter; G80.9 Cerebral palsy, unspecified; R73.03 Prediabetes; I10 Essential (primary) hypertension; F31.9 Bipolar disorder, unspecified; G40.909 Epilepsy, unspecified, not intractable, without status epilepticus; E66.01 Morbid (severe) obesity due to excess calories; Z88.1 Allergy status to other antibiotic agents; Z79.899 Other long term (current) drug therapy
CPT/HCPCS: 73630; 99284

== ENCOUNTER 2024-10-01 12:49 | Emergency (ER) | payer OTHER ==
[~2024-10-01] VITALS: Ht 154.9 cm; Wt 182.8 kg
[~2024-10-01 12:49] MED LIST changes: +KETOROLAC TROME10 MG PO
--- OUTSIDE RECORDS SUMMARY | 2024-10-01 12:56 | XMS ---
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 Security Insole Stiffener Events No recent Security Events currently on file CRITERIA MET - 6 ED Visits in 6 Months - Group Notification - [facility] - 2 Visits in 30 Days CARE PROVIDERS -, [facility] Dentist: Bagger Meat Current [place] PHONE: [phone] -[place]- Dentist: Bagger Meat [facility] PHONE: [phone] JESS LAZARO Surgical Technology Instructor Current PHONE: [phone] [facility]: [facility] FAMILY PHONE: [phone] CLOTILDE ARANA Internal Medicine Current PHONE: [phone] BREANNE HORNE Durable Medical Equipment \T\ Medical Supplies Current PHONE: [phone] ANGEL GUZMÁN Nurse Practitioner: Family Current PHONE: [phone] [facility]: Critical Access Current PHONE: [phone] Jori has no Care Guidelines for this patient. EJorge A VISIT COUNT (12 MO.) 13 JOSE Barros [facility] 1 [facility] (Jack Santiago) TOTAL 17 NOTE: Visits indicate total known visits. ED/UCC VISIT TRACKING (12 MO.) 10/01/2024 12:50 JOSE Padilla [place] TYPE: Emergency COMPLAINT: - COLD SYMPTOMS 09/17/2024 18:44 JOSE Padilla [place] TYPE: Emergency COMPLAINT: - FOOT INJURY DIAGNOSES: - Allergy status to other antibiotic agents - Bipolar disorder, unspecified - Cerebral palsy, unspecified - Contusion of left foot, initial encounter - Epilepsy, unspecified, not intractable, without status epilepticus - Essential (primary) hypertension - Fall on same level from slipping, tripping and stumbling without subsequent striking against object, initial encounter - Morbid (severe) obesity due to excess calories - Other chcf (current) drug therapy - Pain in left foot - Prediabetes 09/11/2024 12:[address] [facility] [place] TYPE: Emergency COMPLAINT: - CHEST PAIN DIAGNOSES: - Allergy status to other antibiotic agents - Epilepsy, unspecified, not intractable, without status epilepticus - Essential (primary) hypertension - Other director long term care (current) drug therapy - Personal history of nicotine dependence - Prediabetes - Shortness of breath - Unspecified asthma with (acute) exacerbation 09/02/2024 21:[address] [facility] [place] TYPE: Emergency COMPLAINT: - JAW PAIN LEFT SIDE DIAGNOSES: - Allergy status to other antibiotic agents - Cerebral palsy, unspecified - Epilepsy, unspecified, not intractable, without status epilepticus - Essential (primary) hypertension - Jaw pain - Left temporomandibular joint disorder, unspecified - Long-term (current) use of injectable non-insulin antidiabetic drugs - Other chcf (current) drug therapy - Personal history of nicotine dependence - Prediabetes - Unspecified otitis externa, left ear 08/11/2024 15:36 [facility] [place] TYPE: Emergency DIAGNOSES: - Acute upper [...] (primary) hypertension - Nasal congestion - Other director long term care (current) drug therapy - Personal history of nicotine dependence - Wheezing 05/31/2024 16[facility]: Emergency DIAGNOSES: - Nondisplaced fracture of fifth metatarsal bone, left foot, initial encounter for closed fracture - foot inj, needs new boot - Foot Pain - lt foot inj, needs new boot 05/28/2024 09:49 [facility] [place] TYPE: Emergency DIAGNOSES: - Displaced fracture [...] of injectable non-insulin antidiabetic drugs - Other chcf (current) drug therapy - Personal history of nicotine dependence - Prediabetes 05/24/2024 15:39 JOSE Padilla [place] TYPE: Emergency COMPLAINT: - ANKLE PAIN DIAGNOSES: - Allergy status to other antibiotic agents - Cerebral palsy, unspecified - Displaced fracture of fifth metatarsal bone, left foot, initial encounter for closed fracture - Essential (primary) hypertension - Other chcf (current) drug therapy - Overexertion from prolonged static or awkward postures, initial encounter - Pain in left ankle and joints of left foot - Personal history of nicotine dependence 01/12/2024 15:[address] [facility] [place] TYPE: Emergency COMPLAINT: - SOB,LIGHT HEADED,CHEST DISCOMFORT DIAGNOSES: - Allergy status to other antibiotic agents - Essential (primary) hypertension - Other director long term care (current) drug therapy - [...] hypertension - Other chest pain - Other chcf (current) drug therapy - Personal history of nicotine dependence 12/18/2023 10:54 JOSE Padilla [place] TYPE: Emergency COMPLAINT: - CHEST PAIN DIAGNOSES: - Allergy status to other antibiotic agents - Anxiety disorder, unspecified - Bipolar disorder, unspecified - Cerebral palsy, unspecified - Cough, unspecified - Epilepsy, unspecified, not intractable, without status epilepticus - Essential (primary) hypertension - Other chcf (current) drug therapy - Personal history of nicotine dependence - Unspecified asthma, uncomplicated 11/07/2023 09:06 JOSE Padilla [place] TYPE: Emergency COMPLAINT: - UNABLE TO SWALLOW DIAGNOSES: - Acute pharyngitis, unspecified - Anxiety disorder, unspecified - Bipolar disorder, unspecified - Cerebral palsy, unspecified - Epilepsy, unspecified, not intractable, without status epilepticus - Essential (primary) hypertension - Other director long term care (current) drug therapy - Personal history of nicotine dependence 11/04/2023 16:25 [facility] [place] TYPE: Emergency DIAGNOSES: - Acute maxillary [...] epilepticus - Essential (primary) hypertension - Other chcf (current) drug therapy - Other specified disorders of nose and nasal sinuses - Personal history of nicotine dependence - Viral infection, unspecified INPATIENT VISIT TRACKING (12 MO.) No inpatient visits to display in this time frame [id number]
[2024-10-01 13:46] LABS: INFLUENZA B NAA NEGATIVE (NEGATIVE); RESPIRATORY SYNCYTIAL VIR NAA NEGATIVE (NEGATIVE)
[2024-10-01] MEDS ORDERED: HYDROCODON-ACE1 EA10 PO (14:53)
[2024-10-01] MEDS ORDERED: ONDANSETRON ODT4 MG PO (14:53)
[2024-10-01 15:17] VITALS: BP 101/80
== END 2024-10-01 15:05 | disposition home or self-care (01) ==
LOC: ED 12:49
PROVIDERS: Emergency Medicine
DX: B34.9 Viral infection, unspecified (principal); I10 Essential (primary) hypertension; J45.909 Unspecified asthma, uncomplicated; R73.03 Prediabetes; G40.909 Epilepsy, unspecified, not intractable, without status epilepticus; G80.9 Cerebral palsy, unspecified; Z88.1 Allergy status to other antibiotic agents; Z79.899 Other long term (current) drug therapy
CPT/HCPCS: 87502; 99283; U0002

== ENCOUNTER 2024-12-08 16:04 | Emergency (ER) | payer OTHER ==
[~2024-12-08] VITALS: Ht 154.9 cm; Wt 189.0 kg
[~2024-12-08 16:04] MED LIST changes: +HYDROCODON-ACE1 EA10 PO
--- OUTSIDE RECORDS SUMMARY | 2024-12-08 16:11 | XMS ---
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 Security Linux Kernel Engineer Events No recent Security Events currently on file CRITERIA MET - 6 ED Visits in 6 Months - Group Notification - [facility] - 2 Visits in 30 Days CARE PROVIDERS -, [facility] Dentist: Dried Yeast Supervisor [facility] PHONE: [phone] -[place]- Dentist: Dried Yeast Supervisor [facility] PHONE: [phone] JESS LAZARO Physician Doughnut Icer Current PHONE: [phone] CLOTILDE ARANA Internal Medicine Current PHONE: [phone] [facility] Pediatrics Current CARE SYSTEM \F\ <UNAVAIL> PHONE: [phone] BREANNE HORNE Durable Medical Equipment \T\ Medical Supplies Current PHONE: [phone] ANGEL GUZMÁN Nurse Practitioner: Family Current PHONE: [phone] [facility]: Critical Access Current PHONE: [phone] Jori has no Care Guidelines for this patient. Eugenie VISIT COUNT (12 MO.) 12 JOSE Barros [facility] 1 [facility] Julieta Zuleta (Jack Santiago) TOTAL 16 NOTE: Visits indicate total known visits. ED/UCC VISIT TRACKING (12 MO.) 12/08/2024 16:04 JOSE Padilla [place] TYPE: Emergency COMPLAINT: - FLANK PAIN 11/19/2024 15:59 [facility] [place] TYPE: Emergency DIAGNOSES: - Diarrhea, unspecified - Unspecified abdominal pain - Vomiting, unspecified - ABD PAIN/FEVER 10/01/2024 12:50 JOSE Padilla [place] TYPE: Emergency COMPLAINT: - COLD SYMPTOMS DIAGNOSES: - Allergy status to other antibiotic agents - Cerebral palsy, unspecified - Cough, unspecified - Epilepsy, unspecified, not intractable, without status epilepticus - Essential (primary) hypertension - Other fdc (current) drug therapy - Prediabetes - Unspecified asthma, uncomplicated - Viral infection, unspecified 09/17/2024 18:44 JOSE Padilla [place] TYPE: Emergency [...] obesity due to excess calories - Other fdc (current) drug therapy - Pain in left foot - Prediabetes 09/11/2024 12:36 JOSE Padilla [place] TYPE: Emergency COMPLAINT: - CHEST PAIN DIAGNOSES: - Allergy status to other antibiotic agents - Epilepsy, unspecified, not intractable, without status epilepticus - Essential (primary) hypertension - Other computer terminal 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 - Personal history of nicotine dependence - Prediabetes - Shortness of breath - Unspecified asthma with (acute) exacerbation 09/02/2024 21:35 JOSE [facility] [place] TYPE: Emergency COMPLAINT: - JAW PAIN LEFT SIDE DIAGNOSES: - Allergy status to other antibiotic agents - Cerebral palsy, unspecified - Epilepsy, unspecified, not intractable, without status epilepticus - Essential (primary) hypertension - Jaw pain - Left temporomandibular joint disorder, unspecified - Long-term (current) use of injectable non-insulin antidiabetic drugs - Other computer terminal 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 - Personal history of nicotine dependence - Prediabetes - Unspecified otitis externa, left ear 08/11/2024 15:36 [facility] [place] TYPE: Emergency DIAGNOSES: - [...] (primary) hypertension - Nasal congestion - Other fdc (current) drug therapy - Personal history of nicotine dependence - Wheezing [facility]/31/2024 [facility] DIAGNOSES: - Nondisplaced fracture of fifth metatarsal bone, left foot, initial encounter for closed fracture - foot inj, needs new boot - Foot Pain - lt foot inj, needs new boot 05/28/2024 09:49 [facility] [place] TYPE: Emergency DIAGNOSES: - [...] of injectable non-insulin antidiabetic drugs - Other fdc (current) drug therapy - Personal history of nicotine dependence - Prediabetes 05/24/2024 15:39 JOSE Padilla [place] TYPE: Emergency COMPLAINT: - ANKLE PAIN DIAGNOSES: - Allergy status to other antibiotic agents - Cerebral palsy, unspecified - Displaced fracture of fifth metatarsal bone, left foot, initial encounter for closed fracture - Essential (primary) hypertension - Other computer terminal 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 - Overexertion from prolonged static or awkward postures, initial encounter - Pain in left ankle and joints of left foot - Personal history of nicotine dependence 01/12/2024 15:17 JOSE [facility] [place] TYPE: Emergency COMPLAINT: - SOB,LIGHT HEADED,CHEST DISCOMFORT DIAGNOSES: - Allergy status to other antibiotic agents - Essential (primary) hypertension - Other fdc (current) drug therapy - Personal history of [...] hypertension - Other chest pain - Other fdc (current) drug therapy - Personal history of nicotine dependence 12/18/2023 10:54 JOSE [facility] [place] TYPE: Emergency COMPLAINT: - CHEST PAIN DIAGNOSES: - Allergy status to other antibiotic agents - Anxiety disorder, unspecified - Bipolar disorder, unspecified - Cerebral palsy, unspecified - Cough, unspecified - Epilepsy, unspecified, not intractable, without status epilepticus - Essential (primary) hypertension - Other fdc (current) drug therapy - Personal history of nicotine dependence - Unspecified asthma, uncomplicated INPATIENT VISIT TRACKING (12 MO.) No inpatient visits to display in this time frame [id number]
[2024-12-08] MEDS ORDERED: CLONAZEPAM0.5 MG PO (16:26)
[2024-12-08] MEDS ORDERED: TRULICITY3 MG/0.5 M SQ (16:26)
[2024-12-08] MEDS ORDERED: HYDROmorphone HCL 1 MG/ML SYR IV PRN (17:15)
[2024-12-08] MEDS ORDERED: ondansetron HCL 4 MG/2 ML VIAL IV ONE (17:15)
[2024-12-08 17:26] LABS: BASOPHILS 0.8 % (0-2); EOSINOPHILS 1.8 % (0-6); HEMATOCRIT 39.8 % (35.0-50.0); HEMOGLOBIN 13.3 g/dL (12.0-18.0); LYMPHOCYTES 31.6 % (24-44); MCH 26.3 (27-36); MCHC 33.4 g/dl (30-36); MCV 78.7 fl (81-99); MONOCYTES 5.6 % (0-12); NEUTROPHILS 60.2 % (39-80); PLATELET COUNT 372 K/uL (140-440); RBC 5.06 M/ul (4.3-5.7); RDW 15.9 (10.5-15.0)
[2024-12-08 17:45] LABS: ALBUMIN 3.5 g/dL (3.4-5.0); ALBUMIN/GLOBULIN RATIO 0.76 (1.1-2.4); ANION GAP 11.9 (7-21); BILIRUBIN, TOTAL 1.1 mg/dL (0.2-1.0); BUN/CREATININE RATIO 13.84 (6.0-28.6); CREATININE, SERUM 0.65 mg/dL (0.55-1.02); POTASSIUM 3.9 mmol/L (3.5-5.1); PROTEIN, TOTAL 8.1 g/dL (6.4-8.2)
[2024-12-08 19:51] LABS: BILIRUBIN, URINE NEGATIVE (negative); BLOOD/HGB, URINE LARGE (Negative); KETONE, URINE NEGATIVE (Negative); LEUK ESTERASE, URINE MODERATE (negative); NITRITE, URINE NEGATIVE (negative)
[2024-12-08 20:14] LABS: CRYSTALS, URINE NONE SEEN (0-1+); EPITHELIAL CELLS, URINE SQUAMOUS 2+ /lpf (0-1+)
[2024-12-08 20:15] LABS: BACTERIA, URINE RARE /hpf (negative); CASTS, URINE NONE SEEN \\lpf
[2024-12-08 20:16] LABS: COLLECTION TYPE, URINE CLEAN CATCH; REFLEX CULTURE, URINE No (No)
[2024-12-08] MEDS ORDERED: ONDANSETRON ODT8 MG PO (20:28)
[2024-12-08] MEDS ORDERED: ONDANSETRON 4 MG HOME.PACK SL ONE (20:30)
[2024-12-08 20:36] VITALS: BP 128/78
== END 2024-12-08 20:36 | disposition home or self-care (01) ==
LOC: ED 16:04
PROVIDERS: Emergency Medicine
DX: N83.201 Unspecified ovarian cyst, right side (principal); R10.12 Left upper quadrant pain; I10 Essential (primary) hypertension; E11.9 Type 2 diabetes mellitus without complications; J45.909 Unspecified asthma, uncomplicated; Z79.899 Other long term (current) drug therapy; Z88.1 Allergy status to other antibiotic agents; Z87.891 Personal history of nicotine dependence
CPT/HCPCS: 36415; 74177; 80053; 81001; 83690; 84703; 85025; 96375; 99284-25; A9270; J1171; J2405; Q9967

== ENCOUNTER 2025-03-04 07:20 | Emergency (ER) | payer OTHER ==
[~2025-03-04] VITALS: Ht 154.9 cm; Wt 189.0 kg
[~2025-03-04 07:20] MED LIST changes: +CLONAZEPAM0.5 MG PO; +ONDANSETRON ODT8 MG PO; +TRULICITY3 MG/0.5 M SQ
--- OUTSIDE RECORDS SUMMARY | 2025-03-04 07:27 | XMS ---
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 Security Television Operator Events No recent Security Events currently on file CRITERIA MET - 6 ED Visits in 6 Months - Group Notification - [facility] - 2 Visits in 30 Days - [facility] - 3 Facilities in 90 Days CARE PROVIDERS JESS LAZARO Industrial Maintenance Manager Current PHONE: [phone] CLOTILDE ARANA Internal Medicine Current PHONE: [phone] [facility] Pediatrics Current CARE SYSTEM \F\ <UNAVAIL> PHONE: [phone] BREANNE HORNE Durable Medical Equipment \T\ Medical Supplies Current PHONE: [phone] ANGEL GUZMÁN Nurse Practitioner: Family Current PHONE: [phone] [facility]: Critical Access Current PHONE: [phone] Jori has no Care Guidelines for this patient. Eugenie VISIT COUNT (12 MO.) [address] 2 [facility] Julieta Zuleta (Jack Santiago) TOTAL 16 NOTE: Visits indicate total known visits. ED/UCC VISIT TRACKING (12 MO.) [facility]25 07[facility] COMPLAINT: - WOUND CHECK 02/27/2025 16:27 [facility] Song COOPER (Jack Santiago) TYPE: Emergency DIAGNOSES: - Disruption of external operation (surgical) wound, not elsewhere classified, initial encounter - post op pain - Post-op Problem - Wound Check 12/22/2024 12:14 [facility] [place] TYPE: Emergency DIAGNOSES: - Right lower quadrant pain - OVARIAN CYST PAIN 12/08/2024 16:04 JOSE Padilla [place] TYPE: Emergency COMPLAINT: - FLANK PAIN DIAGNOSES: - Allergy status to other antibiotic agents - Essential (primary) hypertension - Left upper quadrant pain - Other assisted (current) drug therapy - Personal history of nicotine dependence - Type 2 diabetes mellitus without complications - Unspecified abdominal pain - Unspecified asthma, uncomplicated - Unspecified ovarian cyst, right side 11/19/2024 15:59 [facility] [place] TYPE: Emergency DIAGNOSES: - Diarrhea, unspecified - Unspecified abdominal pain - Vomiting, unspecified - ABD PAIN/FEVER 10/01/2024 12:50 JOSE Padilla [place] TYPE: Emergency COMPLAINT: - COLD SYMPTOMS DIAGNOSES: - Allergy status to other antibiotic agents - Cerebral palsy, unspecified - Cough, unspecified - Epilepsy, unspecified, not intractable, without status epilepticus - Essential (primary) hypertension - Other assisted (current) drug therapy - Prediabetes - Unspecified asthma, uncomplicated - Viral infection, unspecified 09/17/2024 18:44 [facility] Sheldahl HRene Loyola [place] TYPE: Emergency COMPLAINT: - FOOT INJURY [...] obesity due to excess calories - Other assisted (current) drug therapy - Pain in left foot - Prediabetes 09/11/2024 12:[address] [facility] [address] Bertram Loyola [place] TYPE: Emergency COMPLAINT: - CHEST PAIN DIAGNOSES: - Allergy status to other antibiotic agents - Epilepsy, unspecified, not intractable, without status epilepticus - Essential (primary) hypertension - Other courtesy bus driver (current) drug therapy - Personal history of nicotine dependence - Prediabetes - Shortness of breath - Unspecified asthma with (acute) exacerbation 09/02/2024 21:35 [facility] Sheldahl AndrewRene Loyola [place] TYPE: Emergency COMPLAINT: - JAW PAIN LEFT SIDE DIAGNOSES: - Allergy status to other antibiotic agents - Cerebral palsy, unspecified - Epilepsy, unspecified, not intractable, without status epilepticus - Essential (primary) hypertension - Jaw pain - Left temporomandibular joint disorder, unspecified - Long-term (current) use of injectable non-insulin antidiabetic drugs - Other courtesy bus driver (current) drug therapy - Personal history of nicotine dependence - Prediabetes - Unspecified otitis externa, left ear 08/11/2024 15:36 [facility] [place] TYPE: Emergency DIAGNOSES: - Acute [...] (primary) hypertension - Nasal congestion - Other assisted (current) drug therapy - Personal history of nicotine dependence - Wheezing 05/31/2024 16:34 [facility] Jack COOPER (Jack Santiago) TYPE: Emergency DIAGNOSES: - Nondisplaced fracture of fifth metatarsal bone, left foot, initial encounter for closed fracture - foot inj, needs new boot - Foot Pain - lt foot inj, needs new boot 05/28/2024 09:49 [facility] [place] TYPE: Emergency DIAGNOSES: - Displaced fracture of fifth metatarsal bone, left foot, initial encounter for closed fracture - FOOT INJURY 05/27/2024 15:08 JOSE BurksSheldahlBertram Loyola [place] TYPE: Emergency COMPLAINT: - ANKLE PAIN [...] of injectable non-insulin antidiabetic drugs - Other courtesy bus driver (current) drug therapy - Personal history of nicotine dependence - Prediabetes 05/24/2024 15:[address] [facility] [address] Bertram L[place]ola [place] TYPE: Emergency COMPLAINT: - ANKLE PAIN DIAGNOSES: - Allergy status to other antibiotic agents - Cerebral palsy, unspecified - Displaced fracture of fifth metatarsal bone, left foot, initial encounter for closed fracture - Essential (primary) hypertension - Other assisted (current) drug therapy - Overexertion from prolonged static or awkward postures, initial encounter - Pain in left ankle and joints of left foot - Personal history of nicotine dependence INPATIENT VISIT TRACKING (12 MO.) No inpatient visits to display in this time frame [email or web address]
[2025-03-04] MEDS ORDERED: ONDANSETRON ODT8 MG PO (07:43)
[2025-03-04] MEDS ORDERED: OXYCODONE HCL5 MG PO (08:24)
[2025-03-04 08:30] VITALS: BP 134/77
== END 2025-03-04 08:32 | disposition home or self-care (01) ==
LOC: ED 07:20
DX: Z48.816 Encounter for surgical aftercare following surgery on the genitourinary system (principal); G80.9 Cerebral palsy, unspecified; G40.909 Epilepsy, unspecified, not intractable, without status epilepticus; I10 Essential (primary) hypertension; J45.909 Unspecified asthma, uncomplicated; E11.9 Type 2 diabetes mellitus without complications; E66.01 Morbid (severe) obesity due to excess calories; Z68.45 Body mass index [BMI] 70 or greater, adult; Z90.710 Acquired absence of both cervix and uterus; Z87.891 Personal history of nicotine dependence; Z88.1 Allergy status to other antibiotic agents; Z79.899 Other long term (current) drug therapy
CPT/HCPCS: 99283

== ENCOUNTER 2025-08-22 12:06 | Emergency (ER) | payer OTHER ==
[~2025-08-22] VITALS: Ht 154.9 cm; Wt 199.9 kg
[~2025-08-22 12:06] MED LIST changes: +OXYCODONE HCL5 MG PO
--- OUTSIDE RECORDS SUMMARY | 2025-08-22 12:14 | XMS ---
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 Eugenie VISIT COUNT (12 MO.) Denia Graves [address] CrisRene (Jack Santiago) TOTAL 15 NOTE: Visits indicate total known visits. ED/UCC VISIT TRACKING (12 MO.) 08/22/2025 12:07 JOSE Padilla [place] TYPE: Emergency COMPLAINT: - BACK PAIN 07/27/2025 20:58 [facility] [place] TYPE: Emergency DIAGNOSES: - COVID-19 - Viral infection, unspecified - FEVER 05/06/2025 11:30 JOSE Padilla [place] TYPE: Emergency COMPLAINT: - FALL DIAGNOSES: - Allergy status to other antibiotic agents - Allergy status to other drugs, medicaments and biological substances - Contusion of right knee, initial encounter - Essential (primary) hypertension - Personal history of nicotine dependence - Type 2 diabetes mellitus without complications - Unspecified asthma, uncomplicated - Unspecified fall, initial encounter 04/30/2025 17:03 JOSE Johnson TYPE: Emergency COMPLAINT: - SORE THROAT 03/06/2025 17:10 [facility] Jack COOPER ([place]) TYPE: Emergency DIAGNOSES: - Infection following a procedure, unspecified, initial encounter - post op pain - Post-op Problem 03/04/2025 18:27 [facility] [place] TYPE: Emergency DIAGNOSES: - Unspecified infectious disease - BLADDER INFECTION 03/04/2025 07:21 JOSE Padilla [place] TYPE: Emergency COMPLAINT: - WOUND CHECK DIAGNOSES: - Acquired absence of both cervix and uterus - Allergy status to other antibiotic agents - Body mass index [BMI] 70 or greater, adult - Cerebral palsy, unspecified - Encounter for surgical aftercare following surgery on the genitourinary system - Epilepsy, unspecified, not intractable, without status epilepticus - Essential (primary) hypertension - Morbid (severe) obesity due to excess calories - Other long chain quiller tender (current) drug therapy - Personal history of nicotine dependence - Type 2 diabetes mellitus without complications - Unspecified asthma, uncomplicated 02/27/2025 16:27 [facility] Julieta COOPER (Jack Santiago) TYPE: Emergency DIAGNOSES: - Disruption of external operation (surgical) wound, not elsewhere classified, initial encounter - post op pain - Post-op Problem - Wound Check 12/22/2024 12:14 [facility] [place] TYPE: Emergency DIAGNOSES: - Right lower quadrant pain - OVARIAN CYST PAIN 12/08/2024 16:04 JOSE Padilla [place] TYPE: Emergency COMPLAINT: - FLANK PAIN DIAGNOSES: - Allergy status to other antibiotic agents - Essential (primary) hypertension - Left upper quadrant pain - Other snf (current) drug therapy - Personal history of nicotine dependence - Type 2 diabetes mellitus without complications - Unspecified abdominal pain - Unspecified asthma, uncomplicated - Unspecified ovarian cyst, right side 11/19/2024 15:59 [facility] [place] TYPE: Emergency DIAGNOSES: - Diarrhea, unspecified - Unspecified abdominal pain - Vomiting, unspecified - ABD PAIN/FEVER 10/01/2024 12:50 JOSE Padilla [place] TYPE: Emergency COMPLAINT: - COLD SYMPTOMS DIAGNOSES: - Allergy status to other antibiotic agents - Cerebral palsy, unspecified - Cough, unspecified - Epilepsy, unspecified, not intractable, without status epilepticus - Essential (primary) hypertension - Other long chain quiller tender (current) drug therapy - Prediabetes - Unspecified asthma, uncomplicated - Viral infection, unspecified 09/17/2024 18:44 [facility] Jacobus HRene Loyola [place] TYPE: Emergency COMPLAINT: - [...] obesity due to excess calories - Other long chain quiller tender (current) drug therapy - Pain in left foot - Prediabetes 09/11/2024 12:[address] [facility] [address] Bertram Loyola [place] TYPE: Emergency COMPLAINT: - CHEST PAIN DIAGNOSES: - Allergy status to other antibiotic agents - Epilepsy, unspecified, not intractable, without status epilepticus - Essential (primary) hypertension - Other long chain quiller tender (current) drug therapy - Personal history of nicotine dependence - Prediabetes - Shortness of breath - Unspecified asthma with (acute) exacerbation 09/02/2024 21:[address] [facility] [address] Bertram Loyola [place] TYPE: Emergency COMPLAINT: - JAW PAIN LEFT SIDE DIAGNOSES: - Allergy status to other antibiotic agents - Cerebral palsy, unspecified - Epilepsy, unspecified, not intractable, without status epilepticus - Essential (primary) hypertension - Jaw pain - Left temporomandibular joint disorder, unspecified - Long-term (current) use of injectable non-insulin antidiabetic drugs - Other long chain quiller tender (current) drug therapy - Personal history of nicotine dependence - Prediabetes - Unspecified otitis externa, left ear INPATIENT VISIT TRACKING (12 MO.) No inpatient visits to display in this time frame [email or web address]
[2025-08-22 14:33] VITALS: BP 122/72
== END 2025-08-22 14:32 | disposition home or self-care (01) ==
LOC: ED 12:06
DX: M54.42 Lumbago with sciatica, left side (principal); M54.41 Lumbago with sciatica, right side; I10 Essential (primary) hypertension; J45.909 Unspecified asthma, uncomplicated; E11.9 Type 2 diabetes mellitus without complications; Z79.899 Other long term (current) drug therapy; Z88.1 Allergy status to other antibiotic agents; Z88.8 Allergy status to other drugs, medicaments and biological substances; Z87.891 Personal history of nicotine dependence
CPT/HCPCS: 72100; 99283